=== PATIENT | male | born 1985 | race Caucasian/White ===

== ENCOUNTER 2018-10-20 15:22 | Emergency (ER) | payer BC ==
--- NOTE | 2018-10-20 16:10 | CR ---
INDICATION: Pain. TECHNIQUE: Three views of the left knee. FINDINGS: No fracture, dislocation, erosion, or effusion. IMPRESSION: Normal three-view left knee. Dictated by Matt Granado MD @ Oct 20 2018 4:09PM Signed by Dr. Matt Granado @ Oct 20 2018 4:09PM
--- NOTE | 2018-10-20 16:12 | CR ---
INDICATION: Pain. TECHNIQUE: Three views of the left shoulder. FINDINGS: No acute fracture dislocation. No erosion. Old fracture deformity distal 3rd left clavicle. Impression : Old left clavicular fracture. The examination is otherwise negative. Dictated by Matt Granado MD @ Oct 20 2018 4:09PM Signed by Dr. Matt Granado @ Oct 20 2018 4:10PM
[2018-10-20] MEDS ORDERED: HYDROmorphone 2 MG/ML SDV IM ONE (16:29)
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
== END 2018-10-20 17:08 | disposition home or self-care (01) ==
LOC: MW.ED 15:22
DX: S89.92XA Unspecified injury of left lower leg, initial encounter (principal); S49.92XA Unspecified injury of left shoulder and upper arm, initial encounter; V86.56XA Driver of dirt bike or motor/cross bike injured in nontraffic accident, initial encounter
CPT/HCPCS: 73030-26-LT; 73030-LT; 73562-26-LT; 73562-LT; 99283; 99283-25

== ENCOUNTER 2021-01-10 15:18 | Emergency (ER) | payer BC, OTHER ==
--- NOTE | 2021-01-10 16:04 | CR ---
Indication: Trauma Technique: Three-views of the left elbow Findings : Minimally distracted olecranon fracture which is otherwise aligned. Soft tissue swelling/defect. Elbow effusion. No additional fractures seen. Dictated by Prachi Call MD @ 01/10/2021 4:03:[address] Prachi Call @ Jan 10 2021 4:03PM
[2021-01-10] MEDS ORDERED: ceFAZolin 1 GM in Premix Bag 1 BAG IV ONE ×2 (16:07→16:11)
[2021-01-10] MEDS ORDERED: Ondansetron 4 MG/2 ML SDV IVPUSH ONE (16:08)
[2021-01-10] MEDS: fentaNYL 50 MCG/ML SDV IVPUSH ONE ×2 (16:23→16:27)
[2021-01-10] MEDS ORDERED: Lidocaine 1% 10 ML MDV INJECT ONE (17:03)
[2021-01-10] MEDS ORDERED: Diphtheria,Pertussis(Acell),Tetanus Vaccine 0.5 ML Syringe IM ONE (17:55)
[2021-01-10] MEDS ORDERED: cefTRIAXone 1 GM in Premix Bag 1 BAG IV ONE (17:56)
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
== END 2021-01-10 18:32 | disposition home or self-care (01) ==
LOC: MW.ED 15:18
DX: S52.022B Displaced fracture of olecranon process without intraarticular extension of left ulna, initial encounter for open fracture type I or II (principal); Z79.899 Other long term (current) drug therapy; Z23 Encounter for immunization; V86.56XA Driver of dirt bike or motor/cross bike injured in nontraffic accident, initial encounter
CPT/HCPCS: 12002; 29105; 73080; 90471; 90715; 96365; 96367; 96375; 99284; J0690; J0696; J2405; J3010

== ENCOUNTER 2021-01-11 13:07 | Day surgery (SDC) | payer BC ==
[~2021-01-11 13:07] MED LIST: Albuterol 0.083% 2.5 MG/3 ML Neb Soln NEB PRN; Bupivacaine 0.5% 30 ML SDV ONE; Dexamethasone 4 MG/ML 5 ML MDV ONE; HYDROmorphone 2 MG/ML Syringe IVPUSH PRN; Lactated Ringers 1,000 ML IV SCH; Metoclopramide 10 MG/2 ML SDV IVPUSH PRN; Morphine 10 MG/ML Syringe IVPUSH PRN; Naloxone 0.4 MG/ML Syringe IVPUSH PRN; Ondansetron 4 MG/2 ML SDV IVPUSH PRN; fentaNYL 100 MCG/2 ML SDV IVPUSH PRN
[2021-01-11] MEDS ORDERED: fentaNYL 100 MCG/2 ML SDV ONE (13:31)
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
[2021-01-11] MEDS ORDERED: Ondansetron 4 MG/2 ML SDV ONE (14:34)
[2021-01-11] MEDS ORDERED: Propofol 200 MG/20 ML SDV ONE (14:41)
[2021-01-11] MEDS ORDERED: ceFAZolin 2 GM in Premix Bag 1 BAG IV SCH (15:00)
[2021-01-11] MEDS ORDERED: Glycopyrrolate 0.2 MG/ML SDV ONE (15:28)
--- NOTE | 2021-01-11 16:13 | PCM.SN.2 ---
- Free Text/Narrative Note: SEE ANESTHESIA RECORD: After obtaining informed consent from patient, and performing a block timeout, patient was minimally sedated with 100mcg fentanyl IV while using full monitoring (BP,SPO2, ECG) Following application of chlorhexidine an US probe was used to identify the patients left subclavian artery and the corresponding medial, lateral and anterior trunks of the brachial plexus. The skin was localized with 1% lidocaine and a 20g echogenic block needle advance under direct visualization to a position inferior to the subclavian artery. After negative aspiration for blood, 10cc of 0.5% Bupiv was injected in 2cc increments. The needle tip was then repositioned superior to the artery and another 10cc Bupivicaine injected in 2cc increments. Patient tolerated the procedure well and was subsequently taken to the OR for ORIF of left elbow. [id number] Houston Lester MD 01/11/2021
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
--- NOTE | 2021-01-11 17:02 | PCM.POSTAN ---
POST ANESTHESIA ASSESSMENT - MENTAL STATUS Mental Status: Alert, Oriented - VITAL SIGNS Vital Signs: Last Vital Signs Temp 37 C 01/11/21 16:46 Pulse 82 01/11/21 16:56 Resp 10 L 01/11/21 16:56 BP 109/64 01/11/21 16:56 Pulse Ox 94 L 01/11/21 16:56 - RESPIRATORY Respiratory Status: Respiratory Rate WNL, Airway Patent, O2 Saturation Stable - CARDIOVASCULAR CV Status: Pulse Rate WNL, Blood Pressure Stable - GASTROINTESTINAL GI Status: No Symptoms - POST OP HYDRATION Hydration Status: Adequate & Stable
--- NOTE | 2021-01-11 17:02 | PCM48HPAN ---
Post Anesthesia Note - EVALUATION WITHIN 48HRS OF ANESTHETIC Vital Signs in Normal Range: Yes Patient Participated in Evaluation: Yes Respiratory Function Stable: Yes Airway Patent: Yes Cardiovascular Function Stable: Yes Hydration Status Stable: Yes Pain Control Satisfactory: Yes Nausea and Vomiting Control Satisfactory: Yes Mental Status Recovered: Yes Vital Signs: Last Vital Signs Temp 37 C 01/11/21 16:46 Pulse 82 01/11/21 16:56 Resp 10 L 01/11/21 16:56 BP 109/64 01/11/21 16:56 Pulse Ox 94 L 01/11/21 16:56
--- NOTE | 2021-01-12 14:51 | CR ---
INDICATION: Elbow fracture. COMPARISON: X-rays 01/10/2021. FINDINGS: Intraoperative fluoroscopic support provided orthopedic service for ORIF of previously seen proximal ulna fracture. Alignment is anatomic. Remaining osseous structures are intact. A total of 3 seconds fluoroscopy time was utilized. Please see the operative note for additional details. Dictated by Lázaro Randle MD @ 01/12/2021 2:50:[address] Lázaro Randle @ Jan 12 2021 2:50PM
== END 2021-01-11 17:50 | disposition home or self-care (01) ==
LOC: MW.SDS 13:07
PROVIDERS: ATTEND Orthopaedic Surgery
DX: S52.022B Displaced fracture of olecranon process without intraarticular extension of left ulna, initial encounter for open fracture type I or II (principal); Z79.899 Other long term (current) drug therapy; Z01.812 Encounter for preprocedural laboratory examination; Z20.822 Contact with and (suspected) exposure to COVID-19
CPT/HCPCS: 11010; 24685; 87635; C1713; J0690; J1100; J2405; J2704; J3490; J7120; 01740; 64415; U0002